=== PATIENT | male | born 1925 | race Caucasian/White ===

== ENCOUNTER → 2016-07-11 | Outpatient (CLI) | payer OTHER, MEDICARE ==
[~2016-07-11] MED LIST: ALLO300T80 PO; ASPI81TA28 PO; CALC0.5C17 PO; CHOL100010 PO; COLC0.6T54 PO; LOSA50TA54 PO; LOVA40TA4 PO; MECL1TAB42 PO; METO1TAB66 PO; OXYC-57 PO
[2016-07-11 14:33] LABS: MEAN CORPUSCULAR HEMOGLOBIN 31.7 pg (25-34); MEAN CORPUSCULAR HGB CONC 33.1 g/dl (32-36); PLATELET COUNT 211 K/uL (130-400); RED BLOOD COUNT 3.75 M/uL (4.7-6.1); WHITE BLOOD COUNT 5.93 K/uL (4.8-10.8)
[2016-07-11 14:39] LABS: URINE APPEARANCE CLEAR (CLEAR); URINE BILIRUBIN NEG (NEG); URINE COLOR YELLOW; URINE EPITHELIAL CELL AUTO 0-5 /lpf (0-5); URINE NITRITE NEG (NEG); URINE SPECIFIC GRAVITY 1.019 (1.000-1.030); UROBILINOGEN NEG (NEG)
[2016-07-11 14:42] LABS: BLOOD UREA NITROGEN 46 mg/dl (7-18); BUN/CREATININE RATIO 16.5 (10-20); CALCIUM 8.2 mg/dl (8.5-10.1); CARBON DIOXIDE 21 mmol/L (21-32); CHLORIDE 113 mmol/L (98-107); GLUCOSE 100 mg/dl (70-99); PHOSPHORUS 3.5 mg/dl (2.5-4.9); POTASSIUM 4.5 mmol/L (3.5-5.1); SODIUM 144 mmol/L (136-145)
[2016-07-11 14:47] LABS: MANUAL MICROSCOPIC REQUIRED? NO; REVIEW REQ? NO
[2016-07-11 15:03] LABS: URINE PROTIEN/CREAT RATIO 0.2 (0-0.2); URINE TOTAL PROTEIN 31.8 mg/dl (0-11.9)
== END | disposition home or self-care (01) ==
LOC: C.LAB1850 13:19
PROVIDERS: ATTEND Internal Medicine Nephrology
DX: I12.9 Hypertensive chronic kidney disease with stage 1 through stage 4 chronic kidney disease, or unspecified chronic kidney disease (principal); N25.81 Secondary hyperparathyroidism of renal origin; D64.9 Anemia, unspecified; N18.4 Chronic kidney disease, stage 4 (severe)